=== PATIENT | female | born 1965 | race Caucasian/White ===

== ENCOUNTER 2018-09-13 18:46 | Emergency (ER) | payer BC ==
[2018-09-13 18:57] VITALS: BP 134/93
--- NOTE | 2018-09-13 19:00 | UC ---
Throat Pain/Nasal Timmy HPI - HPI Summary HPI Summary: 53 yo female presents with sore throat and dry cough for the last 2-3 days. She has noticed some white spots on her tonsils today. She has taken ibuprofen for her symptoms with mild relief. She does feel mildly short of breath at times and has heard "rattling" in her chest. Denies fever, chills, sinus symptoms, SOB , rash. - History of Current Complaint Chief Complaint: UCGeneralIllness Stated Complaint: SORE THROAT Time Seen by Provider: 09/13/18 18:58 Hx Obtained From: Patient Hx Last Menstrual Period: 3 weeks ago Onset/Duration: Sudden Onset Severity: Mild Pain Intensity: 1 Pain Scale Used: 0-10 Numeric - Allergies/Home Medications Allergies/Adverse Reactions: Allergies Allergy/AdvReac Type Severity Reaction Status Date / Time Bees Allergy Intermediate Swelling Uncoded 09/13/18 18:58 Home Medications: Home Medications Ibuprofen TAB* [Motrin TAB* 600 MG] 600 mg PO Q6H PRN 09/13/18 [History Confirmed 09/13/18] PMH/Surg Hx/FS Hx/Imm Hx - Additional Past Medical History Additional PMH: None - Surgical History Surgical History: Yes Surgery Procedure, Year, and Place: SEPTAL RHINOPLASTY X2 - Family History Known Family History: Positive: None - Social History Lives: With Family Alcohol Use: Daily Alcohol Amount: 1-2 Substance Use Type: None Smoking Status (MU): Never Smoked Tobacco Review of Systems All Other Systems Reviewed And Are Negative: Yes Constitutional: Positive: Negative Skin: Positive: Negative Eyes: Positive: Negative ENT: Positive: Sore Throat Respiratory: Positive: Cough Cardiovascular: Positive: Negative Gastrointestinal: Positive: Negative Neurological: Positive: Negative Psychological: Positive: Negative Physical Exam - Summary Physical Exam Summary: GENERAL: NAD. WDWN. No pain distress. SKIN: No rashes, sores, lesions, or open wounds. HEENT: Head: AT/NC Eyes: Conjunctiva clear without inflammation or discharge. Ears: Hearing grossly normal. TMs intact, no bulging, erythema, or edema. Nose: Nasal mucosa pink and moist. NTTP maxillary and frontal sinus. Throat: Posterior oropharynx mild erythema. No tonsillar enlargement. No exudates. Uvula midline. No hoarse voice or muffled voice. NECK: Supple. Nontender. No lymphadenopathy. CHEST: Coarse breath sounds RML and RLL. No accessory muscle use. Breathing comfortably and in no distress. CV: RRR. Without m/r/g. Pulses intact. Cap refill <2seconds NEURO: Alert. PSYCH: Age appropriate behavior. Triage Information Reviewed: Yes Vital Signs: Initial Vital Signs Temp 98.0 F 09/13/18 18:52 Pulse 98 09/13/18 18:52 Resp 18 09/13/18 18:52 BP 134/93 09/13/18 18:52 Pulse Ox 97 09/13/18 18:52 Laboratory Tests 09/13/18 19:04 Group A Strep Rapid Negative Vital Signs Reviewed: Yes Throat Pain/Nasal Course/Dx - Course Course Of Treatment: POC strep negative. CXR: No radiologist reading after 1800, therefore wet read by myself is negative for PNA. Suspect viral sore throat/cough. Pt requesting anbx treatment at this time as she states she has had tonsillitis in the past that resolved with anbx. Will rx for zpak. - Differential Dx/Diagnosis Provider Diagnosis: Sore throat, Cough Discharge - Sign-Out/Discharge Documenting (check all that apply): Patient Departure All imaging exams completed and their final reports reviewed: No - Discharge Plan Condition: Stable Disposition: HOME Prescriptions: Azithromycin TAB* [Zithromax TAB (Z-MAIRA) 250 mg #6 tabs] 2 tab PO .TODAY, THEN 1 DAILY #1 maira Patient Education Materials: Tonsillitis (ED) Referrals: No Primary Care Phys,NOPCP [Primary Care Provider] - Additional Instructions: If you develop a fever, shortness of breath, chest pain, new or worsening symptoms - please call your PCP or go to the ED. Your blood pressure was mildly elevated at todays visit. Please see your primary provider within 4 weeks for recheck and re-evaluation. - Billing Disposition and Condition Condition: STABLE Disposition: Home
--- NOTE | 2018-09-14 10:27 | UC ---
- Progress Note Progress Note: IMPRESSION: NO EVIDENCE FOR ACTIVE CARDIOPULMONARY DISEASE. No change in plan of care Course/Dx - Diagnoses Provider Diagnoses: Sore throat, Cough Discharge - Sign-Out/Discharge Documenting (check all that apply): Post-Discharge Follow Up All imaging exams completed and their final reports reviewed: Yes - Discharge Plan Condition: Stable Disposition: HOME Prescriptions: Azithromycin TAB* [Zithromax TAB (Z-MAIRA) 250 mg #6 tabs] 2 tab PO .TODAY, THEN 1 DAILY #1 maira Patient Education Materials: Tonsillitis (ED) Referrals: No Primary Care Phys,NOPCP [Primary Care Provider] - Additional Instructions: If you develop a fever, shortness of breath, chest pain, new or worsening symptoms - please call your PCP or go to the ED. Your blood pressure was mildly elevated at todays visit. Please see your primary provider within 4 weeks for recheck and re-evaluation. - Billing Disposition and Condition Condition: STABLE Disposition: Home
== END 2018-09-13 19:59 | disposition home or self-care (01) ==
LOC: UCEAST 18:46
DX: J02.9 Acute pharyngitis, unspecified (principal); R05 Cough; R06.02 Shortness of breath; Z91.030 Bee allergy status
CPT/HCPCS: 71046; 87651; 99202; G0463